=== PATIENT | female | born 1985 | race Caucasian/White ===

== ENCOUNTER 2017-10-24 11:05 | Inpatient (IN) | payer OTHER ==
[2017-10-24] VITALS (17 sets, daily range): BP systolic 111–149; BP diastolic 59–98
[~2017-10-24 11:05] MED LIST: CARAFATE100 MG/ML PO; CIPRO500 MG PO; DAILY VALUE1 EACH PO; IRON325 MG PO; MACROBID100 MG PO; MICROGESTIN1 EACH PO; MOTRIN800 MG PO; PEPCID20 MG PO; PERCOCET 5/31 TABLET PO; PREDNISONE10 M1 PO; PROTONIX40 MG PO; ZOFRAN ODT4 MG PO; ZYRTEC10 M2 PO; ZYRTEC10 M3 PO; [UNRECOGNIZED DRUG - REMARK] PO
[2017-10-24] MEDS ORDERED: PRENATAL TABLE1 EAC3 PO (11:59)
[2017-10-24 12:23] LABS: BASOPHIL (%) 0.3 % (0-1); EOSINOPHIL (%) 1.5 % (0-5); EOSINOPHIL COUNT 0.2 K/uL (0-0.3); HEMATOCRIT 28.6 % (36.0-46.0); HEMOGLOBIN 9.5 G/DL (11.9-15.5); IMMATURE GRANULOCYTE (%) 0.6 % (0.0-0.7); LYMPHOCYTE (%) 14.3 % (15-42); LYMPHOCYTE COUNT 1.7 K/uL (1.0-2.8); MCHC 33.2 G/DL (30.0-36.0); MCV 90.2 FL (83-99); MONOCYTE (%) 9.2 % (3-12); MONOCYTE COUNT 1.1 K/uL (0-0.8); NEUTROPHIL (%) 74.1 % (45-76); NEUTROPHIL COUNT 8.6 K/uL (1.8-6.4); PLATELET COUNT 216 K/uL (156-360); RBC DIS.WIDTH-SD 42.7 % (39-53); RED BLOOD COUNT 3.17 M/uL (3.80-5.20); WHITE BLOOD COUNT 11.6 K/uL (4.1-10.2)
[2017-10-24 12:31] LABS: CHLORIDE 104 MEQ/L (99-109); SODIUM 138 MEQ/L (136-147); TOTAL BILIRUBIN 0.4 MG/DL (0.0-1.0)
[2017-10-24 12:37] LABS: ALKALINE PHOSPHATASE 127 IU/L (3-129); ALT (GPT) 14 IU/L (3-49); AST (GOT) 17 IU/L (2-34); CREATININE 0.8 MG/DL (0.6-1.3); GFR ESTIMATE (CALCULATED) > 59 mL/min/; GLUCOSE 68 mg/dL (70-99); UREA NITROGEN (BUN) 10 mg/dL (9-23)
[2017-10-24 12:45] LABS: APPEARANCE CLEAR ((CLEAR)); BILIRUBIN NEGATIVE; BLOOD MODERATE; COLOR YELLOW ((YELLOW)); GLUCOSE (STRIP) NEGATIVE; KETONES NEGATIVE; LEUKOCYTES NEGATIVE; NITRITE NEGATIVE; PROTEIN (STRIP) 30; SPECIFIC GRAVITY 1.006 (1.000-1.030); UROBILINOGEN 0.2 MG/DL (0.2-1.0)
[2017-10-24 12:51] LABS: BACTERIA RARE /HPF; CALCIUM OXALATE CRYSTALS 2+ /HPF; EPITHELIAL CELLS RARE /HPF; MUCUS TRACE /LPF; UCUL ADDED? NO; WHITE BLOOD CELLS 0-5 /HPF (0-5)
[2017-10-24 15:16] LABS: BASOPHIL (%) 0.3 % (0-1); EOSINOPHIL (%) 1.1 % (0-5); EOSINOPHIL COUNT 0.1 K/uL (0-0.3); HEMATOCRIT 29.2 % (36.0-46.0); HEMOGLOBIN 9.6 G/DL (11.9-15.5); IMMATURE GRANULOCYTE (%) 0.6 % (0.0-0.7); LYMPHOCYTE COUNT 1.7 K/uL (1.0-2.8); MCH 29.3 PG (29.0-34.0); MCHC 32.9 G/DL (30.0-36.0); MONOCYTE (%) 7.6 % (3-12); MONOCYTE COUNT 0.9 K/uL (0-0.8); NEUTROPHIL (%) 76.4 % (45-76); NEUTROPHIL COUNT 9.1 K/uL (1.8-6.4); PLATELET COUNT 221 K/uL (156-360); RBC DIS.WIDTH-CV 12.8 % (11.8-14.6); RBC DIS.WIDTH-SD 41.7 % (39-53); RED BLOOD COUNT 3.28 M/uL (3.80-5.20); WHITE BLOOD COUNT 11.8 K/uL (4.1-10.2)
[2017-10-24 16:37] LABS: SOURCE SWAB
[2017-10-25] VITALS (20 sets, daily range): BP systolic 94–129; BP diastolic 52–79
[2017-10-25 09:20] LABS: BASOPHIL (%) 0.1 % (0-1); EOSINOPHIL (%) 0.1 % (0-5); HEMATOCRIT 27.5 % (36.0-46.0); HEMOGLOBIN 8.9 G/DL (11.9-15.5); LYMPHOCYTE (%) 10.2 % (15-42); LYMPHOCYTE COUNT 1.4 K/uL (1.0-2.8); MCH 28.8 PG (29.0-34.0); MCHC 32.4 G/DL (30.0-36.0); MONOCYTE COUNT 0.7 K/uL (0-0.8); NEUTROPHIL (%) 83.6 % (45-76); NEUTROPHIL COUNT 11.2 K/uL (1.8-6.4); PLATELET COUNT 232 K/uL (156-360); RBC DIS.WIDTH-CV 12.9 % (11.8-14.6); RBC DIS.WIDTH-SD 41.3 % (39-53); RED BLOOD COUNT 3.09 M/uL (3.80-5.20); WHITE BLOOD COUNT 13.4 K/uL (4.1-10.2)
[2017-10-25 09:39] LABS: BENZODIAZEPINES, URINE SCREEN Negative (200 ng/mL)
[2017-10-25 09:47] LABS: ALBUMIN 2.9 G/DL (3.2-4.8); ALKALINE PHOSPHATASE 127 IU/L (3-129); ALT (GPT) 15 IU/L (3-49); AST (GOT) 20 IU/L (2-34); CHLORIDE 98 MEQ/L (99-109); GFR ESTIMATE (CALCULATED) > 59 mL/min/; POTASSIUM 3.7 MEQ/L (3.7-5.4); SODIUM 132 MEQ/L (136-147); TOTAL PROTEIN 5.8 G/DL (6.4-8.3); UREA NITROGEN (BUN) 9 mg/dL (9-23)
[2017-10-25 09:50] LABS: GLUCOSE 118 mg/dL (70-99); TOTAL BILIRUBIN 0.6 MG/DL (0.0-1.0)
[2017-10-25 09:51] LABS: MAGNESIUM 7.9 mg/dl (1.3-2.7)
[2017-10-25 11:12] LABS: C4 COMPLEMENT 52 MG/DL (10-40)
[2017-10-26 03:36] VITALS: BP 103/59
[2017-10-26 07:00] LABS: BASOPHIL (%) 0.1 % (0-1); EOSINOPHIL (%) 0 % (0-5); HEMATOCRIT 24.3 % (36.0-46.0); IMMATURE GRANULOCYTE (%) 2.3 % (0.0-0.7); LYMPHOCYTE (%) 11.4 % (15-42); LYMPHOCYTE COUNT 1.5 K/uL (1.0-2.8); MCH 29.6 PG (29.0-34.0); MCHC 32.9 G/DL (30.0-36.0); MONOCYTE (%) 5.3 % (3-12); MONOCYTE COUNT 0.7 K/uL (0-0.8); NEUTROPHIL (%) 80.9 % (45-76); NEUTROPHIL COUNT 10.8 K/uL (1.8-6.4); PLATELET COUNT 228 K/uL (156-360); RBC DIS.WIDTH-CV 13.2 % (11.8-14.6); WHITE BLOOD COUNT 13.3 K/uL (4.1-10.2)
[2017-10-26 07:09] VITALS: BP 112/69
[2017-10-26 07:44] LABS: ALBUMIN 2.7 G/DL (3.2-4.8); ALKALINE PHOSPHATASE 103 IU/L (3-129); ALT (GPT) 14 IU/L (3-49); AST (GOT) 16 IU/L (2-34); CHLORIDE 106 MEQ/L (99-109); CREATININE 1.1 MG/DL (0.6-1.3); GFR ESTIMATE (CALCULATED) > 59 mL/min/; GLUCOSE 119 mg/dL (70-99); POTASSIUM 4.3 MEQ/L (3.7-5.4); SODIUM 137 MEQ/L (136-147); TOTAL PROTEIN 5.3 G/DL (6.4-8.3); UREA NITROGEN (BUN) 15 mg/dL (9-23)
[2017-10-26 07:45] LABS: TOTAL BILIRUBIN 0.3 MG/DL (0.0-1.0)
[2017-10-26 11:08] VITALS: BP 127/70
[2017-10-26 14:30] VITALS: BP 116/65
[2017-10-26 22:15] VITALS: BP 123/70
[2017-10-27] VITALS (12 sets, daily range): BP systolic 104–157; BP diastolic 60–98
[2017-10-27 08:17] LABS: HEMATOCRIT 24.6 % (36.0-46.0); HEMOGLOBIN 7.9 G/DL (11.9-15.5); MCH 29.3 PG (29.0-34.0); MCHC 32.1 G/DL (30.0-36.0); MCV 91.1 FL (83-99); PLATELET COUNT 230 K/uL (156-360); RBC DIS.WIDTH-CV 13.2 % (11.8-14.6); RBC DIS.WIDTH-SD 43.3 % (39-53); WHITE BLOOD COUNT 11.2 K/uL (4.1-10.2)
[2017-10-27 08:42] LABS: ALBUMIN 2.8 G/DL (3.2-4.8); ALKALINE PHOSPHATASE 102 IU/L (3-129); ALT (GPT) 19 IU/L (3-49); AST (GOT) 27 IU/L (2-34); CHLORIDE 105 MEQ/L (99-109); GFR ESTIMATE (CALCULATED) > 59 mL/min/; GLUCOSE 102 mg/dL (70-99); POTASSIUM 3.5 MEQ/L (3.7-5.4); SODIUM 135 MEQ/L (136-147); TOTAL BILIRUBIN 0.2 MG/DL (0.0-1.0); TOTAL PROTEIN 5.5 G/DL (6.4-8.3); UREA NITROGEN (BUN) 14 mg/dL (9-23)
[2017-10-28] VITALS (28 sets, daily range): BP systolic 115–190; BP diastolic 58–108
[2017-10-28 11:40] LABS: ANTI-DOUBLE STRANDED DNA 40 U/mL (0-99)
[2017-10-28] MEDS ORDERED: IBUPROFEN800 MG PO (17:03)
[2017-10-29 03:38] VITALS: BP 136/83
[2017-10-29 05:25] LABS: BASOPHIL (%) 0.3 % (0-1); EOSINOPHIL (%) 0.8 % (0-5); EOSINOPHIL COUNT 0.1 K/uL (0-0.3); HEMATOCRIT 24.5 % (36.0-46.0); HEMOGLOBIN 7.9 G/DL (11.9-15.5); IMMATURE GRANULOCYTE (%) 0.5 % (0.0-0.7); LYMPHOCYTE (%) 32.5 % (15-42); LYMPHOCYTE COUNT 3.6 K/uL (1.0-2.8); MCH 29.2 PG (29.0-34.0); MCHC 32.2 G/DL (30.0-36.0); MCV 90.4 FL (83-99); MONOCYTE COUNT 0.8 K/uL (0-0.8); NEUTROPHIL (%) 58.9 % (45-76); NEUTROPHIL COUNT 6.6 K/uL (1.8-6.4); PLATELET COUNT 197 K/uL (156-360); RBC DIS.WIDTH-CV 13.1 % (11.8-14.6); RBC DIS.WIDTH-SD 42.4 % (39-53); RED BLOOD COUNT 2.71 M/uL (3.80-5.20); WHITE BLOOD COUNT 11.2 K/uL (4.1-10.2)
[2017-10-29 07:54] VITALS: BP 138/76
[2017-10-29 11:14] VITALS: BP 130/80
[2017-10-29 12:59] VITALS: BP 143/84
[2017-10-29 15:14] VITALS: BP 142/78
[2017-10-29 21:12] VITALS: BP 145/89
[2017-10-30] VITALS (8 sets, daily range): BP systolic 138–157; BP diastolic 77–92
[2017-10-30] MEDS ORDERED: PROCARDIA XL30 MG PO (10:16)
[2017-10-31 03:45] VITALS: BP 160/86
[2017-10-31 04:44] VITALS: BP 143/89
[2017-10-31 09:25] VITALS: BP 134/84
[2017-10-31 12:47] VITALS: BP 149/83
[2017-10-31] MEDS ORDERED: LABETALOL HCL200 MG PO (13:37)
== END 2017-10-31 16:00 | disposition home or self-care (01) | DRG 775 ==
LOC: LDRP-OP 11:05 → 2WEST 11:07
PROVIDERS: Advanced Practice Midwife; Midwife; Obstetrics & Gynecology; Obstetrics & Gynecology Obstetrics
PROC: 10E0XZZ Delivery of Products of Conception, External Approach (ICD-10-PCS; principal; 2017-10-28)
PROC: 00HU33Z Insertion of Infusion Device into Spinal Canal, Percutaneous Approach (ICD-10-PCS; principal; 2017-10-28)
PROC: 3E0R3BZ Introduction of Anesthetic Agent into Spinal Canal, Percutaneous Approach (ICD-10-PCS; principal; 2017-10-28)
DX: O42.113 Preterm premature rupture of membranes, onset of labor more than 24 hours following rupture, third trimester (principal); O60.14X0 Preterm labor third trimester with preterm delivery third trimester, not applicable or unspecified; O69.2XX0 Labor and delivery complicated by other cord entanglement, with compression, not applicable or unspecified; O14.94 Unspecified pre-eclampsia, complicating childbirth; O99.284 Endocrine, nutritional and metabolic diseases complicating childbirth; E83.51 Hypocalcemia; E83.41 Hypermagnesemia; O99.62 Diseases of the digestive system complicating childbirth; K50.90 Crohn's disease, unspecified, without complications; O99.02 Anemia complicating childbirth; D64.9 Anemia, unspecified; O99.89 Other specified diseases and conditions complicating pregnancy, childbirth and the puerperium; R51 Headache; Z3A.33 33 weeks gestation of pregnancy; Z37.0 Single live birth
CPT/HCPCS: 76818; 80053; 80306 90; 81003; 82570; 83735; 84156; 85025; 85025 91; 85027; 86160; 86235; 86850; 86900; 86901; 87081; 87491; 87591; 88307; C1755; G0378; J0290; J0595; J0702; J2405; J2540; J3010; J3475; J7050; J7120